=== PATIENT | male | born 1945 | race Caucasian/White ===

== ENCOUNTER 2023-01-09 19:15 | Inpatient (IN) | payer OTHER ==
[2023-01-09 20:25] LABS: Absolute Lymphocytes (CBC) 1.9 K/uL (0.7-4.9); Hematocrit 40.2 % (39.6-49.0); Lymphocytes % 34.8 % (15.3-44.8); MCV 88.5 fL (80-100); MPV 7.8 fL (7.6-11.3); RBC Red Blood Cell Count 4.54 M/uL (4.33-5.43)
[2023-01-09 20:31] LABS: Protime INR 1.02
[2023-01-09] MEDS ORDERED: HEPARIN 5000 UNIT/ML 1 ML VIAL ONE (20:37)
[2023-01-09] MEDS ORDERED: HEPARIN/D5W 25,000 UNIT/500 ML BAG IV ONE (20:37)
--- NOTE | 2023-01-09 20:45 | EDPHYS ---
Physician Documentation [facility] Name: Ben Ly Age: 77 yrs Sex: Male : 1945 Arrival Date: 01/09/2023 Time: 19:15 Bed 5 Private MD: ED Physician Dominic Ogden HPI: 01/09 20:40 This 77 yrs old Male presents to ER via Ambulatory with complaints of andres Shortness Of Breath. 20:40 The patient has shortness of breath at rest, with light activity. andres Historical: - Allergies: 19:57 No Known Drug Allergies; cm10 - PMHx: 19:57 Hyperlipidemia; Hypertension; Hypothyroidism; cm10 - Immunization history:: Adult Immunizations. - Social history:: Smoking status: Patient denies any tobacco usage or history of. ROS: 20:42 Constitutional: Negative for fever, chills, and weight loss, Eyes: Negative for injury, andres pain, redness, and discharge, ENT: Negative for injury, pain, and discharge, Neck: Negative for injury, pain, and swelling, Cardiovascular: Negative for chest pain, palpitations, and edema, Abdomen/GI: Negative for abdominal pain, nausea, vomiting, diarrhea, and constipation, Back: Negative for injury and pain, : Negative for injury, bleeding, discharge, and swelling, MS/Extremity: Negative for injury and deformity, Skin: Negative for injury, rash, and discoloration, Neuro: Negative for headache, weakness, numbness, tingling, and seizure, Psych: Negative for depression, anxiety, suicide ideation, homicidal ideation, and hallucinations, Allergy/Immunology: Negative for hives, rash, and allergies, Endocrine: Negative for neck swelling, polydipsia, polyuria, polyphagia, and marked weight changes, Hematologic/Lymphatic: Negative for swollen nodes, abnormal bleeding, and unusual bruising. 20:42 Respiratory: Positive for shortness of breath, on exertion. Exam: 20:42 Constitutional: This is a well developed, well nourished patient who is awake, alert, andres and in no acute distress. Head/Face: Normocephalic, atraumatic. Eyes: Pupils equal round and reactive to light, extra-ocular motions intact. Lids and lashes normal. Conjunctiva and sclera are non-icteric and not injected. Cornea within normal limits. Periorbital areas with no swelling, redness, or edema. ENT: Nares patent. No nasal discharge, no septal abnormalities noted. Tympanic membranes are normal and external auditory canals are clear. Oropharynx with no redness, swelling, or masses, exudates, or evidence of obstruction, uvula midline. Mucous membranes moist. Neck: Trachea midline, no thyromegaly or masses palpated, and no cervical lymphadenopathy. Supple, full range of motion without nuchal rigidity, or vertebral point tenderness. No Meningismus. Chest/axilla: Normal chest wall appearance and motion. Nontender with no deformity. No lesions are appreciated. Cardiovascular: Regular rate and rhythm with a normal S1 and S2. No gallops, murmurs, or rubs. Normal PMI, no JVD. No pulse deficits. Respiratory: Lungs have equal breath sounds bilaterally, clear to auscultation and percussion. No rales, rhonchi or wheezes noted. No increased work of breathing, no retractions or nasal flaring. Abdomen/GI: Soft, non-tender, with normal bowel sounds. No distension or tympany. No guarding or rebound. No evidence of tenderness throughout. Back: No spinal tenderness. No costovertebral tenderness. Full range of motion. Male : Normal genitalia with no discharge or lesions. Skin: Warm, dry with normal turgor. Normal color with no rashes, no lesions, and no evidence of cellulitis. MS/ Extremity: Pulses equal, no cyanosis. Neurovascular intact. Full, normal range of motion. Neuro: Awake and alert, GCS 15, oriented to person, place, time, and situation. Cranial nerves II-XII grossly intact. Motor strength 5/5 in all extremities. Sensory grossly intact. Cerebellar exam normal. Normal gait. Psych: Awake, alert, with orientation to person, place and time. Behavior, mood, and affect are within normal limits. 20:42 ECG was reviewed by the Attending Physician. Vital Signs: 19:54 BP 132 / 79; Pulse 65; Resp 18; Temp 98.2(TE); Pulse Ox 98% ; Weight 91.63 kg; Height 5 cm10 ft. 10 in. ; Pain 0/10; 20:20 Weight 107.5 kg (M); lg3 20:59 BP 137 / 72; Pulse 63; Resp 16 S; Pulse Ox 99% on R/A; jw7 21:37 BP 138 / 75; Pulse 61; Resp 16 S; Pulse Ox 98% on R/A; lg3 22:06 BP 141 / 82; Pulse 62; Resp 15 S; Pulse Ox 99% on R/A; jw7 20:20 Body Mass Index 34.01 (107.50 kg, 177.8 cm) 3 19:54 Pain Scale: Adult cm10 MDM: 19:59 Patient medically screened. [facility] 01/09 20:00 Order name: Basic Metabolic Panel; Complete Time: 21:27 [facility] 01/09 20:00 Order name: CBC with Diff; Complete Time: 20:39 [facility] 01/09 20:00 Order name: LFT's; Complete Time: 21:27 [facility] 01/09 20:00 Order name: Magnesium; Complete Time: 21:27 [facility] 01/09 20:00 Order name: NT PRO-BNP; Complete Time: 21:27 [facility] 01/09 20:00 Order name: PT-INR; Complete Time: 20:39 [facility] 01/09 20:00 Order name: Troponin HS; Complete Time: 21:27 [facility] 01/09 20:00 Order name: Urinalysis w/ reflexes [facility] 01/09 20:29 Order name: Ptt, Activated; Complete Time: 21:[address] [facility] 01/09 20:39 Order name: Lipid Profile; Complete Time: 21:27 [facility] 01/09 20:00 Order name: XRAY Chest (1 view); Complete Time: 21:27 [facility] 01/09 20:00 Order name: EKG; Complete Time: 20:00 [facility] 01/09 20:56 Order name: CONS Physician Consult [facility] 01/09 20:00 Order name: Cardiac monitoring; Complete Time: 20:15 [facility] 01/09 20:00 Order name: EKG - Nurse/Tech; Complete Time: 20:15 [facility] 01/09 20:00 Order name: IV Saline Lock; Complete Time: 20:15 [facility] 01/09 20:00 Order name: Labs collected and sent; Complete Time: 20:15 [facility] 01/09 20:00 Order name: O2 Per Protocol; Complete Time: 20:15 [facility] 01/09 20:00 Order name: O2 Sat Monitoring; Complete Time: 20:15 [facility] EC:42 Rate is 63 beats/min. Rhythm is regular. QRS [place] is Normal. CA interval is normal. QRS andres interval is normal. QT interval is normal. No Q waves. T waves are Normal. No ST changes noted. Clinical impression: NSR w/ Non-specific ST/T Changes and No evidence of ischemia. Interpreted by me. Reviewed by me. Administered Medications: 20:50 Drug: Heparin ([place]-Bolus No thrombolytic) - HEParin IVP 60 units/kg {Co-Signature: jw7 as6 (Erika Skelton RN).} Route: IVP; Site: left antecubital; 21:39 Follow up: Response: No adverse reaction lg3 20:50 Drug: Heparin ([place] Drip) - (D5W IV 500 ml, [place] [address] units) 12 units/kg/hr as6 {Co-Signature: jw7 (Erika Skelton RN).} Route: IV; Rate: calculated rate; Site: left antecubital; 22:36 Follow up: IV Status: Infusion continued upon admission lg3 20:57 Drug: Aspirin PO Chewable Tablet 81 mg Route: PO; as6 21:39 Follow up: Response: No adverse reaction lg3 Disposition Summary: 01/09/23 20:44 Hospitalization Ordered Hospitalization Status: Observation andres Provider: Jorge Deal cha Location: Telemetry/MedSurg (observation) andres Condition: Stable andres Problem: new andres Symptoms: have improved andres Bed/Room Type: Standard andres Room Assignment: 223(01/09/23 22:02) cg Diagnosis - Dyspnea andres - Chest pain, unspecified andres Forms: - Medication Reconciliation Form andres - SBAR form andres Signatures: Dispatcher [employer] Dominic Bojra MD MD cha Garcia, Cindy, RN RN cg Benjamin Lindsey RN RN as6 Hoa Li RN RN cmCece England RN lg3 Erika Skelton RN jw7 Corrections: (The following items were deleted from the chart) 22:02 20:44 andres cg
--- NOTE | 2023-01-09 20:45 | ER ---
Nurse's Notes [facility] Name: Ben Ly Age: 77 yrs Sex: Male : 1945 Arrival Date: 01/09/2023 Time: 19:15 Bed 5 Private MD: Diagnosis: Dyspnea;Chest pain, unspecified Presentation: 01/09 19:54 Chief complaint: Patient states: shortness of breath X couple of months ago. 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 Villareal and "I failed my cardiac stress test and was told to come to the ED to be admitted to have a cardiac cath done tomorrow." Pt denies any chest pain. Coronavirus screen: Vaccine status: Patient reports receiving the 2nd dose of the covid vaccine. Ebola Screen: Patient denies travel to an Ebola-affected area in the 21 days before illness onset. No symptoms or risks identified at this time. Initial Sepsis Screen: Does the patient meet any 2 criteria? No. Patient's initial sepsis screen is negative. Does the patient have a suspected source of infection? No. Patient's initial sepsis screen is negative. Risk Assessment: Do you want to hurt yourself or someone else? Patient reports no desire to harm self or others. Onset of symptoms was January 09, 2023. 19:54 Method Of Arrival: Ambulatory 10 19:54 Acuity: ILAN 2 cm10 Triage Assessment: 21:38 Respiratory: Reports. lg3 Historical: - Allergies: 19:57 No Known Drug Allergies; cm10 - PMHx: 19:57 Hyperlipidemia; Hypertension; Hypothyroidism; cm10 - Immunization history:: Adult Immunizations. - Social history:: Smoking status: Patient denies any tobacco usage or history of. Screenin:15 [facility] ED Fall Risk Assessment (Adult) History of falling in the last 3 months, lg3 including since admission No falls in past 3 months (0 pts). Abuse screen: Denies threats or abuse. Denies injuries from another. Nutritional screening: No deficits noted. Tuberculosis screening: No symptoms or risk factors identified. Assessment: 20:15 General: Appears in no apparent distress. comfortable, Behavior is calm, cooperative. lg3 Pain: Denies pain. Neuro: No deficits noted. [place] Agitation-Sedation Scale (RASS): 0 - Alert and Calm Level of Consciousness is awake, alert, obeys commands, Oriented to person, place, time, situation. Cardiovascular: No deficits noted. Denies chest pain, shortness of breath. Respiratory: No deficits noted. Airway is patent Respiratory effort is even, unlabored, Respiratory pattern is regular, symmetrical, Breath sounds are clear bilaterally. Denies shortness of breath. GI: No deficits noted. No signs and/or symptoms were reported involving the gastrointestinal system. Abdomen is round non-distended. : No deficits noted. No signs and/or symptoms were reported regarding the genitourinary system. EENT: No deficits noted. No signs and/or symptoms were reported regarding the EENT system. Derm: No deficits noted. No signs and/or symptoms reported regarding the dermatologic system. Skin is intact, is healthy with good turgor, Skin is dry, Skin is normal, Skin temperature is warm. Musculoskeletal: No deficits noted. No signs and/or symptoms reported regarding the musculoskeletal system. Circulation, motion, and sensation intact. Range of motion: intact in all extremities. 20:15 Cardiovascular: Rhythm is sinus rhythm. lg3 20:59 Reassessment: Patient appears in no apparent distress at this time. Patient and/or jw7 family updated on plan of care and expected duration. Pain level reassessed. Patient is alert, oriented x 3, equal unlabored respirations, skin warm/dry/pink. no complaints or concerns at this time. 22:08 General: attempted to call report . jw7 Vital Signs: 19:54 BP 132 / 79; Pulse 65; Resp 18; Temp 98.2(TE); Pulse Ox 98% ; Weight 91.63 kg; Height 5 cm10 ft. 10 in. ; Pain 0/10; 20:20 Weight 107.5 kg (M); lg3 20:59 BP 137 / 72; Pulse 63; Resp 16 S; Pulse Ox 99% on R/A; jw7 21:37 BP 138 / 75; Pulse 61; Resp 16 S; Pulse Ox 98% on R/A; lg3 22:06 BP 141 / 82; Pulse 62; Resp 15 S; Pulse Ox 99% on R/A; jw7 20:20 Body Mass Index 34.01 (107.50 kg, 177.8 cm) lg3 19:54 Pain Scale: Adult cm10 ED Course: 19:21 Patient arrived in ED. ag3 19:57 Triage completed. cm10 19:58 Arm band placed on Patient placed in an exam room, on a stretcher. cm10 19:59 Dominic Stevens MD is Attending Physician. andres 20:11 Cece Royal, JAMES is Primary Nurse. lg3 20:13 Radiology exam delayed due to DR STEVENS IS IN THE ROOM. az 20:15 Patient has correct armband on for positive identification. Placed in gown. Bed in low lg3 position. Call light in reach. Side rails up X 1. Client placed on continuous cardiac and pulse oximetry monitoring. NIBP monitoring applied. awake overnight monitor on. Door closed. Noise minimized. Warm blanket given. Family accompanied patient. 20:15 Basic Metabolic Panel Sent. lg3 20:15 CBC with Diff Sent. lg3 20:15 LFT's Sent. lg3 20:15 Magnesium Sent. lg3 20:15 NT PRO-BNP Sent. lg3 20:15 PT-INR Sent. lg3 20:15 Troponin HS Sent. lg3 20:15 Inserted saline lock: 20 gauge in left antecubital area, using aseptic technique. Blood lg3 collected. Patient maintains SpO2 saturation greater than 95% on room air. 20:43 XRAY Chest (1 view) In Process Unspecified. EDMS 20:43 Jorge Deal MD is Hospitalizing Provider. andres 20:45 Inserted saline lock: 18 gauge in right antecubital area, using aseptic technique. as6 21:38 No provider procedures requiring assistance completed. Patient admitted, IV remains in lg3 place. intact, No redness/swelling at site. 22:54 Provided Education on: need for admit. as6 Administered Medications: 20:50 Drug: Heparin ([place]-Bolus No thrombolytic) - HEParin IVP 60 units/kg {Co-Signature: jw7 as6 (Erika Skelton RN).} Route: IVP; Site: left antecubital; 21:39 Follow up: Response: No adverse reaction lg3 20:50 Drug: Heparin ([place] Drip) - (D5W IV 500 ml, [place] [address] units) 12 units/kg/hr as6 {Co-Signature: jw7 (Erika Skelton RN).} Route: IV; Rate: calculated rate; Site: left antecubital; 22:36 Follow up: IV Status: Infusion continued upon admission lg3 20:57 Drug: Aspirin PO Chewable Tablet 81 mg Route: PO; as6 21:39 Follow up: Response: No adverse reaction lg3 Medication: 21:38 VIS not applicable for this client. lg3 Outcome: 20:44 Decision to Hospitalize by Provider. andres 22:06 Condition: stable jw7 22:06 Instructed on the need for admit. jw7 22:35 Admitted to Med/surg accompanied by tech, via wheelchair, room 223, Report called to lg3 Kurt 22:55 Patient left the ED. as6 Signatures: Dispatcher [employer] EDNM Dominic Stevens MD MD cha Zavala, Lina Bates ag3 Cece Royal, RN RN lg3 Benjamin Lindsey RN RN as6 Erika Skelton RN JAMES jw7 Hoa Li RN RN cm10 Erika Skelton RN jw7
[2023-01-09 20:47] LABS: Albumin 3.3 g/dL (3.4-5.0); Bilirubin Direct 0.1 mg/dL (0-0.2); Bilirubin Indirect, Calculated 0.6 mg/dL (0.2-0.8); Bilirubin Total 0.7 mg/dL (0.2-1.0); Potassium 3.9 mEq/L (3.5-5.1); Protein, Total 6.9 g/dL (6.4-8.2); Troponin High Sensitivity 6.2 pg/mL (<58.9)
--- NOTE | 2023-01-09 20:54 | RAD REPORT ---
EXAM DESCRIPTION: Garry Single View01/09/2023 8:41 pm CLINICAL HISTORY: sob COMPARISON: September 2022 FINDINGS: The lungs appear clear of acute infiltrate. The heart is normal size IMPRESSION: No acute abnormalities displayed
[2023-01-09] MEDS ORDERED: ASPIRIN 81 MG CHEWABLE TABLET ONE (20:55)
[2023-01-09] MEDS ORDERED: ACETAMINOPHEN 325 MG TABLET PO PRN (22:46)
[2023-01-09] MEDS ORDERED: HEPARIN/D5W 25,000 UNIT/500 ML BAG IV SCH (22:46)
[2023-01-09] MEDS ORDERED: ONDANSETRON 4 MG/2 ML VIAL IV PRN (22:46)
[2023-01-09] MEDS ORDERED: MORPHINE 4 MG/ML SYR IV PRN (22:46)
[2023-01-09] MEDS: FAMOTIDINE 20 MG/2 ML VIAL IV SCH (23:45)
[2023-01-10 00:06] VITALS: BMI 34.0
[2023-01-10 05:20] LABS: Absolute Lymphocytes (CBC) 2.5 K/uL (0.7-4.9); Hematocrit 38.8 % (39.6-49.0); Lymphocytes % 45.6 % (15.3-44.8); MCV 87.1 fL (80-100); RBC Red Blood Cell Count 4.45 M/uL (4.33-5.43)
[2023-01-10] MEDS: ASPIRIN EC 81 MG TAB PO SCH (05:28)
[2023-01-10 05:35] LABS: Potassium 3.4 mEq/L (3.5-5.1)
[2023-01-10] MEDS ORDERED: PNEUMOCOCCAL VACCINE 0.5 ML IMVAC ONE (08:00)
[2023-01-10] MEDS: FAMOTIDINE 20 MG/2 ML VIAL IV SCH ×2 (08:10→20:23)
[2023-01-10] MEDS ORDERED: NA CHLORIDE 0.9% 500 ML ONE ×2 (14:15→16:15)
--- NOTE | 2023-01-10 17:30 | EKG ---
Test Date: 2023-01-10 Test Time: 09:51:47 Used Car Make Ready Mechanic: NOLA MEASUREMENT RESULTS: Intervals: Rate: 65 ME: 196 QRSD: 88 QT: 396 QTc: 411 [place]: P: 61 ME: 196 QRS: 7 T: 4 INTERPRETIVE STATEMENTS: Normal sinus rhythm Normal ECG Compared to ECG 01/09/2023 20:16:18 No significant changes Electronically Signed On 01-10-23 17:30:20 CDT by Tal Villareal
--- NOTE | 2023-01-10 17:33 | EKG ---
Test Date: 2023-01-09 Test Time: 20:16:18 Building Trades Teacher: KARISHMA MEASUREMENT RESULTS: Intervals: Rate: 63 WV: 198 QRSD: 96 QT: 412 QTc: 421 [place]: P: 62 WV: 198 QRS: 11 T: 38 INTERPRETIVE STATEMENTS: Normal sinus rhythm Normal ECG Compared to ECG 08/21/2017 20:57:20 No significant changes Electronically Signed On 01-10-23 17:31:23 CDT by Tal Villareal
[2023-01-10] MEDS ORDERED: POTASSIUM CL SA 10 MEQ TAB PO ONE (19:12)
[2023-01-10] MEDS: carvediloL 6.25 MG TAB PO SCH (21:56)
[2023-01-11] MEDS ORDERED: LEVOTHYROXINE SOD 0.075 MG TAB PO SCH (06:00)
[2023-01-11] MEDS ORDERED: HEPA 1000U/500MLS 2,000 UNIT/1,000 ML BAG IV ONE (07:03)
[2023-01-11] MEDS ORDERED: HEPARIN 5000 UNIT/ML 1 ML VIAL ONE (07:04)
[2023-01-11] MEDS ORDERED: FENTANYL CITR 100 MCG/2 ML ONE (07:04)
[2023-01-11] MEDS ORDERED: MIDAZOLAM HCL 2 MG/2 ML INJ ONE (07:04)
[2023-01-11] MEDS ORDERED: VERAPAMIL HCL 10 MG/4 ML VIAL IV ONE (07:04)
[2023-01-11] MEDS ORDERED: LIDOCAINE 1% 20 ML MDV ONE (07:05)
[2023-01-11] MEDS ORDERED: TICAGRELOR 90 MG TABLET PO ONE (07:05)
[2023-01-11] MEDS ORDERED: ATROPINE SULF 1 MG/10 ML SYR IV ONE (07:05)
[2023-01-11] MEDS ORDERED: HEPARIN 10,000 UNIT/10 ML VIAL IV ONE (07:05)
[2023-01-11] MEDS ORDERED: CLOPIDOGREL 75 MG TABLET ONE (07:05)
[2023-01-11] MEDS ORDERED: ASPIRIN 325 MG TAB ONE (07:06)
[2023-01-11] MEDS ORDERED: NITROGLYCERIN 100 MCG/ML SYR (for cath lab use only) IV ONE (07:07)
[2023-01-11] MEDS ORDERED: NITROGLYCERIN/D5W 25 MG/250 ML BTL IV ONE (07:07)
[2023-01-11] MEDS ORDERED: NA CHLORIDE 0.9% 500 ML ONE (07:29)
[2023-01-11] MEDS ORDERED: Phenylephrine HCl 10 MG/ML 1 ML VIAL ONE (08:05)
--- NOTE | 2023-01-11 08:15 | HP ---
Date of Admission: 01/10/2023 Chief Complaint: Shortness of breath. History Of Present Illness: This is a 77-year-old male patient, who came into the emergency room with complaints of shortness of breath with minimal daily activities. The patient had outpatient cardiac workup done by director business development at his office including nuclear stress test, which was abnormal showing reversible perfusion defect and with these ongoing symptoms, he came into ER last night. After he was evaluated, he was admitted to the hospital with cardiology consult. Allergies: NO KNOWN ALLERGIES. Medications: Amlodipine 5 mg daily, aspirin 81 mg daily, carvedilol 12.5 mg 2 times a day, levothyroxine 75 mcg daily, paroxetine 20 mg daily and he was taking simvastatin 20 mg daily, but recently, I have changed that statin therapy to atorvastatin 40 mg daily at bedtime. Review of Systems: Respiratory: As mentioned above. Cardiovascular: As mentioned above. All other systems reviewed and negative. Past Medical History: Significant for thyroid nodule, hypothyroidism, impaired fasting glucose, hypertension, mixed hyperlipidemia, prostate cancer, erectile dysfunction, leukocytopenia. Past Surgical History: Prostatectomy, carpal tunnel release, and knee surgery. Family History: Father , had prostate cancer and dementia. Mother , had hypertension and CLL. Sister has hypertension and breast cancer. Social History: Negative for smoking. Use of alcohol occasional. Physical Examination: Vital Signs: Temperature 97, pulse 66, respiratory rate 18, blood pressure 137/77, oxygen saturation 96% on room air. Height 5 feet 10 inches, weight 236 pounds. General: Awake, alert, oriented, not in distress. HEENT: Head atraumatic, normocephalic. Conjunctivae nonerythematous. Sclerae white. Mouth, no thrush or edema noted. Ears/Nose, no mass, lesion, discharge noted. Neck: Supple. No JVD, lymph nodes, bruit, thyromegaly noted. Lungs: Bilateral good equal air entry. Clear to auscultation. No rhonchi. No rales. Heart: Normal heart sounds, no murmur or gallop. Abdomen: Soft, bowel sounds normal. No guarding, rigidity, tenderness, mass, hepatosplenomegaly, distention, or bruit noted. Extremities: No leg edema. No calf tenderness. Skin: No rash, ulcer, cellulitis. Lymphatics: No lymph node enlargement in neck, supraclavicular, infraclavicular region. Neuro: No focal neurological deficit. Chest: Unremarkable. External Genitalia: Deferred. Rectal: Deferred. Laboratory Data: EKG; normal sinus rhythm, no acute ST-T changes. Yesterday; WBC 5.5, hemoglobin 13.2, platelets 255. Today; WBC 5.5, hemoglobin 12.7, platelets 251. Yesterday; sodium 137, potassium 3.9, chloride 106, bicarb 26, BUN 20, creatinine 1.24, glucose 134. Liver function tests unremarkable. Initial troponin 6.2, second troponin 6.2. Triglyceride 239, total cholesterol 145, LDL 42, HDL 55. This morning; sodium 138, potassium 3.4, chloride 107, bicarb 27, BUN 17, creatinine 0.96, glucose 104. Chest x-ray, no acute cardiopulmonary changes. Impression: 1. Probable coronary artery disease. 2. Hypertension. 3. Mixed hyperlipidemia. 4. Impaired fasting glucose. 5. Anemia, unspecified. 6. Prostate cancer. 7. Hypothyroidism. Plan: Admit the patient to hospital for further evaluation and management of this problem. Cardiology consultation has been requested and Dr. Villareal is planning to do cardiac cath on him. The patient agrees with the plan of treatment. Meanwhile for his blood pressure, we will go ahead and continue antihypertensive medications per order. We will continue statin therapy per order. Continue his anti-platelet therapy and levothyroxine. Replace potassium per order and details of plan of treatment discussed with the patient. I will see him tomorrow for followup. HALEY/MODL Voice ID: [id number] MTDD
--- NOTE | 2023-01-11 08:53 | OP ---
Date of Procedure: 01/11/2023 Surgeon: JUSTIN SIDHU Procedures Performed: 1.Selective coronary angiogram. 2.Left heart catheterization. Indication: Chest pain with abnormal stress test. Access: Right radial artery 6-British closed with TR band. Complications: None. Bleeding: Less than 20 mL. Total Sedation Time: 15 minutes. Used fentanyl and versed. Description Of Procedure: After risks, benefits, and alternatives were explained, patient agreed to proceed and signed informed consent. Patient was brought into the cardiac ablation laboratory, prepp ed and draped in sterile fashion. Then, I accessed right radial artery using pediatric micropuncture kit, placed 6-British Slender sheath, took 5-British [place] 4.0 catheter into the aortic root, engaged left main and took standard views and then RCA and took standard views and then catheter was pushed o fortunato the wire into the LV, measured LVEDP. Pullback did not record any gradient and catheter was savannah margarito. Sheath was removed and TR band was placed with good hemostasis. Findings: 1.Left main: Large and normal. 2.LAD: Large vessel. Proximal segment is clean in the mid segment after diagonal 1 branch. There is a focal area of 40% stenosis. The rest of the LAD is normal and the diagonal branches are normal. 3.Left circumflex is normal, moderate size, normal OM branches. 4.RCA: Large and dominant and it is normal. 5.Normal LVEDP at 6 mmHg. Conclusion: 1.Mild nonobstructive coronary artery disease involving the LAD. 2.Normal LVEDP. Recommendation: Medical management. SR/MODL Voice ID: [id number] Report ID: [id number]
[2023-01-11] MEDS ORDERED: AMLODIPINE 5 MG TAB PO SCH (09:00)
[2023-01-11] MEDS ORDERED: PARoxetine HCL 10 MG TAB PO SCH (09:00)
[2023-01-11] MEDS: FAMOTIDINE 20 MG/2 ML VIAL IV SCH (09:00)
[2023-01-11 09:26] VITALS: O2SAT 99
[2023-01-11 09:47] VITALS: BP 120/71
[2023-01-11] MEDS: carvediloL 6.25 MG TAB PO SCH (10:05)
[2023-01-11] MEDS: ASPIRIN EC 81 MG TAB PO SCH (10:05)
[2023-01-11 11:14] VITALS: TEMP 98.4
[2023-01-11] MEDS ORDERED: ATORVASTATIN 40 MG TAB PO SCH (21:00)
--- NOTE | 2023-01-13 16:51 | PN ---
Date of Progress Note: 01/11/2023 Subjective: Seen by bedside. Doing well. No further chest pain. Review of Systems: No chest pain, shortness of breath, orthopnea, or cough. No nausea, vomiting, or diarrhea. All othe r systems were reviewed, they were negative. Objective: Vital Signs: Reviewed. Head and Neck: Pupils are equal, reactive to light. Intact eye movements. No JVD. No cervical lym phadenopathy. Neck is supple. Thyroid is not enlarged. Lungs: Clear to auscultation bilaterally. No rhonchi, wheezing, or crackles. No accessory muscle u se. Heart: Regular rate and rhythm. No extra sounds. Abdomen: Soft, nontender. Bowel sounds positive. No organomegaly. No masses or hernia. No rigidi ty or rebound. Extremities: No edema, clubbing, or cyanosis. Intact pulses. Skin: No rash. No nodule. Neurologic: Alert, awake, oriented x3. No acute focal deficits appreciated. Investigation: Labs were reviewed. Coronary angiogram showed mild nonobstructive coronary artery di sease. Assessment And Recommendations: 1.Chest pain, but coronary angiogram did not show any significant coronary artery disease. Has mild nonobstructive disease. Likely stress test is falsely positive. Recommend baby aspirin and statin like Lipitor 40 mg or Crestor 20 mg q.h.s. Patient can be released. Follow up as an outpatient. 2.Hypertension. Blood pressure is controlled. Continue current management. Cardiology will sign o ff. SR/MODL Voice ID: [id number] Report ID: [id number]
--- NOTE | 2023-01-13 18:15 | CON ---
Date of Consultation: 01/10/2023 Reason For Consultation: Chest pain and abnormal stress test. History Of Present Illness: This is a 77-year-old male with past medical history of hypothyroidism, dyslipidemia, hypertension, who has been having shortness of breath on exertion and some chest discomfort. Had a stress test that was abnormal, presented to the emergency room with some chest discomfort and I evaluated him by bedside. His cardiac enzymes have been negative. Given the fact that his stress test is positive, we will plan for doing coronary angiogram on him. Past Medical History: As outlined above in HPI. Medications: Refer reconciliation sheet for detailed list. Allergies: NO KNOWN DRUG ALLERGIES. Family History: No premature coronary artery disease or cancer. Social History: Does not smoke or drink. Does not use any drugs. Review of Systems: All systems reviewed and they were negative except as mentioned in the HPI. Physical Examination: Vital Signs: Reviewed. Head and Neck: Pupils are equal, reactive to light. Intact eye movements. No JVD. No cervical lymphadenopathy. Neck is supple. Thyroid is not enlarged. Lungs: Clear to auscultation bilaterally. No rhonchi, rales, or crackles. No accessory muscle use. Heart: Regular rate and rhythm. No extra sounds. Abdomen: Soft, nontender. Bowel sounds positive. No organomegaly. No masses or hernia. No rigidity or rebound. Extremities: No edema, clubbing, cyanosis. Intact pulses. Skin: No rashes. Neurologic: Alert, awake, oriented x3. No acute focal deficits appreciated. Investigations: Cardiac enzymes are negative. BUN is 20, creatinine 1.24. Assessment/recommendation: 1. Chest pain with abnormal stress test and negative cardiac enzymes. We will plan for coronary angiogram due to the stress test being abnormal and meanwhile continue baby aspirin and we will plan for the coronary angiogram tomorrow morning to keep patient n.p.o. past midnight. 2. Hypertension. Blood pressure is controlled. Continue current management. /[email or web address] Voice ID: [id number] Report ID: [id number]
== END 2023-01-11 11:24 | disposition home or self-care (01) | DRG 287 ==
LOC: ER 19:15 → 2ND 20:52 → OBSVTOIN 01-11 09:37
PROVIDERS: ADMIT Internal Medicine; ATTEND Internal Medicine
PROC: 4A023N7 Measurement of Cardiac Sampling and Pressure, Left Heart, Percutaneous Approach (ICD-10-PCS; principal; 2023-01-11)
PROC: B2111ZZ Fluoroscopy of Multiple Coronary Arteries using Low Osmolar Contrast (ICD-10-PCS; 2023-01-11)
DX: I25.10 Atherosclerotic heart disease of native coronary artery without angina pectoris (principal); I10 Essential (primary) hypertension; E78.2 Mixed hyperlipidemia; R73.01 Impaired fasting glucose; D64.9 Anemia, unspecified; E03.9 Hypothyroidism, unspecified; N52.9 Male erectile dysfunction, unspecified; Z79.82 Long term (current) use of aspirin; Z79.899 Other long term (current) drug therapy; Z85.46 Personal history of malignant neoplasm of prostate; Z90.79 Acquired absence of other genital organ(s); Z82.49 Family history of ischemic heart disease and other diseases of the circulatory system; Z80.3 Family history of malignant neoplasm of breast; Z80.6 Family history of leukemia; Z80.42 Family history of malignant neoplasm of prostate; Z82.0 Family history of epilepsy and other diseases of the nervous system
CPT/HCPCS: 36415; 71045; 76937; 80048; 80061; 80076; 82947; 83735; 83880; 84484; 85025; 85610; 85730; 93005; 93458; 96365; 96366; 99285; C1893; J0461; J1644; J2001; J2250; J2371; J3010; J7040; Q9966